=== PATIENT | male | born 1935 | race Caucasian/White ===

== ENCOUNTER 2018-10-27 06:03 | Day surgery (SDC) | payer MEDICARE, MEDICAID ==
[~2018-10-27] VITALS: Ht 167.6 cm; Wt 78.5 kg
[~2018-10-27 06:03] MED LIST: AMLO5TAB88 PO; ATOR20TA65 PO; CLOP75TA33 PO; DEXL60CA3 PO; DOCU250C19 PO; FOLI0.4T2 PO; GABA-531 PO; LEVO150T8 PO; LOSA25TA12 PO; METO-539 PO; TAMS-11 PO
[2018-10-27] MEDS ORDERED: LACTATED RINGERS 1,000 ML IV SCH (07:15)
[2018-10-27] MEDS ORDERED: BUPIVACAINE HCL 0.5% (5MG/ML) 50ML ONE (08:00)
[2018-10-27] MEDS ORDERED: SKIN ADHESIVE 0.7 GM EA TOP ONE (08:00)
[2018-10-27] MEDS ORDERED: PROPOFOL 200MG/20ML VIAL IV ONE (09:15)
[2018-10-27] MEDS ORDERED: GLYCOPYRROLATE 0.2 MG/ML 2ML VIAL ONE (09:15)
[2018-10-27] MEDS ORDERED: ROCURONIUM BROMIDE 10MG/ML VIAL 5ML IV ONE (09:15)
[2018-10-27] MEDS ORDERED: SUCCINYLCHOLINE CHLORIDE 200MG/10ML IV ONE (09:15)
[2018-10-27] MEDS ORDERED: BUPIVACAINE HCL 0.5% 125 ML in ON-Q PM012 DRUG DELIV DEVICE 1 EA IR ONE (09:45)
[2018-10-27] MEDS ORDERED: BUPIVACAINE HCL 0.5% 125 ML in ON-Q PUMP (PM012=P100X2) IR SCH (10:00)
[2018-10-27] MEDS ORDERED: KETOROLAC 30MG/ML VIAL ONE (10:15)
== END 2018-10-27 12:45 | disposition home or self-care (01) ==
LOC: OR 06:03
PROVIDERS: ATTEND Surgery
DX: K40.90 Unilateral inguinal hernia, without obstruction or gangrene, not specified as recurrent (principal); I10 Essential (primary) hypertension; E78.5 Hyperlipidemia, unspecified; Z86.73 Personal history of transient ischemic attack (TIA), and cerebral infarction without residual deficits; E03.9 Hypothyroidism, unspecified; Z87.891 Personal history of nicotine dependence
CPT/HCPCS: 49505; 71045; C1781; G0168; J0330; J1885; J2704; J3490